=== PATIENT | female | born 1980 | race African-American/Black ===

== ENCOUNTER 2023-09-28 11:57 | Outpatient (REF) | payer OTHER, SELFPAY ==
--- NOTE | ~2023-09-28 | US_ITS ---
EXAMINATION: US PELVIS CLINICAL INFORMATION: Intermittent menstrual bleeding COMPARISON: None available. TECHNIQUE: Ultrasound of the pelvis is performed using both transabdominal and transvaginal transducers along with Doppler. Transvaginal imaging is performed due to inadequate visualization transabdominally. FINDINGS: Uterus: The uterus is anteverted, anteflexed and and measures 17.0 cm in length, 7.47 AP and 9.0 cm in transverse dimension. The double wall endometrium is obscured by overlying fibroid disease. It is not clearly visualized. The uterus is smooth in contour and has normal myometrial echogenicity. There are 3 heterogeneous lesions are visualized in the myometrium.. 1. The largest lesion in the fundus measures 7.9 x 6.4 x 6.8 cm. 2. Lesion in the right upper body of uterus measures 2.9 x 2.4 x 2.5 cm. 3. Lesion in the posterior body of uterus measures 3.2 x 2.4 x 2.8 cm. There are small nabothian cysts seen in the cervix Adnexa: Both ovaries are visualized. There is normal color flow to the adnexa. There is no ovarian torsion. There is no pelvic ascites or fluid collection. Right ovary measures 3.2 x 2.7 x 2.9 cm and volume 13.4 mL and appears unremarkable. Left ovary measures 3.7 x 2.6 x 2.7 cm and volume 13.7 mL. Appears unremarkable. US/US pelvic and transvaginal IMPRESSION: Uterine fibroids. The fibroids obscure endometrial thickness evaluation. Unremarkable ovaries. Small nabothian cysts in the cervix.
== END 2023-09-28 11:58 | disposition home or self-care (01) ==
LOC: HO.US 11:57
PROVIDERS: PCP Family Medicine; Visit Provider Family Medicine
DX: N92.6 Irregular menstruation, unspecified (principal)
CPT/HCPCS: 76830; 76856